=== PATIENT | female | born 1995 | race Caucasian/White ===

== ENCOUNTER 2017-03-07 12:13 | Emergency (ER) | END 2017-03-07 15:09 | disposition home or self-care (01) ==

== ENCOUNTER 2017-04-27 08:37 | Emergency (ER) | END 2017-04-27 10:16 | disposition home or self-care (01) ==

== ENCOUNTER 2018-08-18 07:06 | Day surgery (SDC) | payer OTHER ==
[~2018-08-18] VITALS: Ht 170.2 cm; Wt 97.8 kg
[~2018-08-18 07:06] MED LIST: ACET500C5 PO; AMOX500C2 PO; AZIT250T PO
[2018-08-18] MEDS ORDERED: [UNRECOGNIZED DRUG - OTHER] (07:57)
[2018-08-18] MEDS ORDERED: ACID REFLUX MED (07:57)
[2018-08-18 08:01] VITALS: Ht 170.2 cm; Wt 97.8 kg
[2018-08-18 08:09] VITALS: BP 101/62; PULSE 73; RESP 18
--- NOTE | 2018-08-18 08:14 | PREAC ---
Date/Time of Note Date/Time of Note DATE: 08/18/18 TIME: 08:12 Anesthesia Eval and Record Evaluation Time Pre-Procedure Interview DATE: 08/18/18 TIME: 08:12 Age 22 Sex female NPO: 8 hrs Preoperative diagnosis GERD Planned procedure EGD Past Medical History Past Medical History: Includes Pulm: Sleep Apnea, Asthma GI: GERD, Obesity Surgery & Anesthesia Issues No known issue Meds Anticoagulation: No Beta Jarocho within 24 hr: No Reason Beta Jarocho not given: Pt. not on B-Jarocho Active Scripts Azithromycin* (Zithromax*) 250 Mg Tablet, 250 MG PO .SantoshPACK DIRECTED, #6 TAB TAKE 500 MG (2 TABS) THE FIRST DAY THEN 250 MG (1 TAB) DAYS 2-5 Prov:ZACHARY PHOENIX PA-C 04/27/17 Acetaminophen* (Tylophen*) 500 Mg Capsule, 2 CAP PO Q8H PRN for PAIN AND OR ELEVATED TEMP, #20 CAP Prov:ZACHARY PHOENIX PA-C 04/27/17 Amoxicillin* (Amoxicillin*) 500 Mg Cap, 500 MG PO TID for 7 Days, CAP Prov:NI EPPS PA-C 03/07/17 Reported Medications [Acid Reflux Med] No Conflict Check 08/18/18 [Asthma Meds Prn] No Conflict Check 08/18/18 Meds reviewed: Yes Allergies Coded Allergies: NSAIDS (Non-Steroidal Anti-Inflamma (Verified Allergy, Severe, THROAT SWELLING, ANAPHYLACTIC SHOCK, 08/18/18) ibuprofen (Verified Allergy, Severe, anaphylactic shock, 06/25/14) naproxen (Verified Allergy, Severe, Anaphylactic Shock, 06/25/14) Allergies Reviewed: Yes Labs/Studies Labs Reviewed: Reviewed by anesthesiologist test: Negative Pre-procedure Exam Last vitals Vital Signs Date Temp Pulse Resp B/P (MAP) Pulse Ox O2 O2 Flow FiO2 Time Delivery Rate 08/18/18 98.6 73 18 101/62 98 Room Air 08:09 (75) Airway: Adequate mouth opening, Adequate thyromental dist Mallampati: Mallampati II Teeth: Normal Lung: Normal Heart: Normal ASA Physical Status ASA physical status: 2 Emergency: None Planned Anesthetic General/MAC: MAC Planned Pain Management Parenteral pain med Pre-operative Attestations Prior to commencing anesthesia and surgery, the patient was re-evaluated, there was verification of: *The patient's identity *The results of appropriate recent lab work and preoperative vital signs *The above evaluation not changing prior to induction *Anesthetic plan, risk benefits, alternative and complications discussed with patient/family; questions answered; patient/family understands, accepts and wishes to proceed. HARJIT SIMMONS Aug 18, 2018 08:14
[2018-08-18] MEDS ORDERED: PROPOFOL 40 ML ONE (08:16)
[2018-08-18] MEDS ORDERED: LIDOCAINE 2% (SDV) 5 ML INJ ONE (08:17)
--- NOTE | 2018-08-18 09:44 | PAC ---
Date/Time of Note Date/Time of Note DATE: 08/18/18 TIME: 09:44 Post-Anesthesia Notes Post-Anesthesia Note Last documented vital signs Vital Signs Date Temp Pulse Resp B/P (MAP) Pulse Ox O2 O2 Flow FiO2 Time Delivery Rate 08/18/18 98.6 73 18 101/62 98 Room Air 0940 (75) Activity: WNL Respiratory function: WNL Cardiovascular function: WNL Mental status: Baseline Pain reasonably controlled: Yes Hydration appropriate: Yes Nausea/Vomiting absent: Yes HARJIT SIMMONS Aug 18, 2018 09:44
[2018-08-18] MEDS ORDERED: FENTAnyl 50 MCG/ML VIAL IV PRN (10:00)
== END 2018-08-18 10:22 | disposition home or self-care (01) ==
LOC: GIL 07:06
PROVIDERS: ATTEND Internal Medicine Gastroenterology
DX: K21.0 Gastro-esophageal reflux disease with esophagitis (principal); J45.909 Unspecified asthma, uncomplicated
CPT/HCPCS: 43239; 84703; 88305; 88312; 88313; Z7610